=== PATIENT | male | born 1990 | race Caucasian/White ===

== ENCOUNTER 2017-09-11 18:37 | Emergency (ER) | payer OTHER ==
[~2017-09-11] VITALS: Ht 154.9 cm; Wt 59.4 kg
[~2017-09-11 18:37] MED LIST: HYDR-971 PO; KETO5DRO24 EACHEYE; depression med PO
[2017-09-11 19:25] VITALS: BP 128/66
[2017-09-11] MEDS ORDERED: TETRACAINE 0.5% OPHTH SOLUTION 4ML BOTTLE. OD ONE (19:30)
[2017-09-11] MEDS ORDERED: FLUORESCEIN OPHTH TEST STRIP. OD ONE (19:30)
--- NOTE | 2017-09-11 19:33 | PHYS DOC ---
Past Medical History Past Medical History: Anxiety, Depression Past Surgical History: No Surgical History Alcohol Use: Occasionally Drug Use: None Adult General Chief Complaint Chief Complaint: EYE PROBLEMS HPI HPI Patient is a 27 year old male presents to the emergency department stating that he feels like he has something in his right eye. Patient states that he was working on a car and believes a piece of metal might of present illness eye. He does state he was wearing safety glasses. He states that the pain and discomfort is more in the inner corner of the right eye. He denies any visual difficulty. He does say worse glasses denies using any contact lenses. He states his tetanus immunization is up-to-date. Review of Systems Review of Systems Constitutional: Denies fever or chills [] Eyes: Denies change in visual acuity, redness, or eye pain. Complaint of foreign body sensation right eye HENT: Denies nasal congestion or sore throat [] Respiratory: Denies cough or shortness of breath [] Cardiovascular: No additional information not addressed in HPI [] GI: Denies abdominal pain, nausea, vomiting, bloody stools or diarrhea [] : Denies dysuria or hematuria [] Musculoskeletal: Denies back pain or joint pain [] Integument: Denies rash or skin lesions [] Neurologic: Denies headache, focal weakness or sensory changes [] Endocrine: Denies polyuria or polydipsia [] Current Medications Current Medications Current Medications Medications (Trade) Dose Ordered Sig/[facility] Start Time Stop Time Status Last Admin Dose Admin Fluorescein Sodium (Ful-Daniella) 1 strip 1X ONCE 09/11/17 19:30 09/11/17 19:36 DC 09/11/17 19:30 1 STRIP Tetracaine HCl (Tetracaine) 1 drop 1X ONCE 09/11/17 19:30 09/11/17 19:36 DC 09/11/17 19:30 1 DROP Allergies Allergies Allergies Coded Allergies Type Severity Reaction Last Updated Verified No Known Drug Allergies 09/05/16 No Physical Exam Physical Exam Constitutional: Well developed, well nourished, no acute distress, non-toxic appearance. [] HENT: Normocephalic, atraumatic, bilateral external ears normal, oropharynx moist, no oral exudates, nose normal. [] Eyes: PERRLA, EOMI, conjunctiva normal, no discharge. [] Neck: Normal range of motion, no tenderness, supple, no stridor. [] Cardiovascular:Heart rate regular rhythm, no murmur [] Lungs & Thorax: Bilateral breath sounds clear to auscultation [] Skin: Warm, dry, no erythema, no rash. [] Extremities: No tenderness, no cyanosis, no clubbing, ROM intact, no edema. [] Neurologic: Alert and oriented X 3, normal motor function, normal sensory function, no focal deficits noted. [] Psychologic: Affect normal, judgement normal, mood normal. [] EKG EKG [] Radiology/Procedures Radiology/Procedures [] Course & Med Decision Making Course & Med Decision Making Pertinent Labs and Imaging studies reviewed. (See chart for details) Tetracaine was placed into the right eye. Eyelid was inverted with no foreign body noted. [id number] was used to examine the eye further with no corneal abrasion noted. Patient will be discharged home with ofloxacin eyedrops. With recommendations to follow-up with ophthalmology in the next 24 hours. Signs and symptoms to return back to emergency department as been provided. All questions and concerns been answered patient's bedside. Patient will be discharged home in stable condition. Dragon Disclaimer Dragon Disclaimer This electronic medical record was generated, in whole or in part, using a voice recognition dictation system. Departure Departure Impression: Primary Impression: Eye pain Disposition: 01 HOME, SELF-CARE Condition: STABLE Referrals: NO PCP (PCP) Alex SANCHES MD Patient Instructions: Eye - Foreign Body, [id number] Additional Instructions: Activity as tolerated. Medication as prescribed. Tylenol or ibuprofen for pain and discomfort. Follow-up with [facility] in the next 24 hours. Return back to emergency department for signs and symptoms of become worse. Scripts Ofloxacin (OCUFLOX) 5 Ml Drops 1-2 DROP OD BID, #[address] in the right eye for thenext 7 days Prov: STERLING PERALES APRN 09/11/17 Problem Qualifiers Primary Impression: Eye pain Laterality: right Qualified Codes: H57.11 - Ocular pain, right eye STERLING PERALES APRN Sep 11, 2017 19:33
[2017-09-11] MEDS ORDERED: OFLO5DRO OD (19:54)
== END 2017-09-11 19:58 | disposition home or self-care (01) ==
LOC: ER 18:37
DX: H57.11 Ocular pain, right eye (principal); X58.XXXA Exposure to other specified factors, initial encounter; Y93.89 Activity, other specified; Y99.0 Civilian activity done for income or pay; Y92.69 Other specified industrial and construction area as the place of occurrence of the external cause
CPT/HCPCS: 99283